=== PATIENT | female | born 1960 | race Caucasian/White ===

== ENCOUNTER → 2016-10-25 | Outpatient (REF) | payer OTHER | LOC: M LAB REF 10:13 | PROVIDERS: ATTEND Internal Medicine | DX: R07.9 Chest pain, unspecified (principal); R42 Dizziness and giddiness ==

== ENCOUNTER 2017-08-09 10:48 | Emergency (ER) | payer OTHER ==
[~2017-08-09] VITALS: Ht 170.2 cm; Wt 89.2 kg
[2017-08-09] MEDS ORDERED: CYMB1CAP4 PO (11:01)
[2017-08-09] MEDS ORDERED: BYST5TAB2 PO (11:01)
[2017-08-09] MEDS ORDERED: VALS1TAB48 PO (11:01)
[2017-08-09] MEDS ORDERED: NEUR300C PO (11:01)
[2017-08-09] MEDS ORDERED: NS 1,000 ML IV SCH (11:18)
[2017-08-09 11:24] LABS: BASO # 0.1 10^3/uL (0.0-0.2); BASO % 0.6 % (0.0-1.0); EOS # 0.1 10^3/uL (0.0-0.50); EOS % 1.5 % (0.0-3.0); IMMATURE GRANULOCYTE % 0.3 % (0-0); LYMPH # 1.3 10^3/uL (1.5-4.5); LYMPH % 14.1 % (24.0-44.0); MEAN CORPUSCULAR HEMOGLOBIN 32.3 pg (27.0-33.0); MEAN CORPUSCULAR VOLUME 95.1 fl (80.0-96.0); MONO # 0.7 10^3/uL (0.0-0.8); MONO % 7.4 % (0.0-5.0); NEUTROPHILS # 7.3 10^3/uL (1.8-7.7); NEUTROPHILS % 76.1 % (36.0-66.0); PLATELET COUNT, AUTOMATED 270 10^3/uL (150-450); RED CELL DISTRIBUTION WIDTH 13.1 % (11.5-14.5); WHITE BLOOD COUNT 9.5 10^3/uL (4.0-10.0)
[2017-08-09] MEDS ORDERED: NITROGLYCERIN 0.4 MG SUBL TABLET SL PRN (11:30)
[2017-08-09] MEDS ORDERED: ASPIRIN 81 MG CHEW TABLET PO ONE (11:30)
[2017-08-09 11:48] LABS: ALBUMIN 3.4 GM/DL (3.2-5.2); ALBUMIN/GLOBULIN RATIO 0.74 (1.00-1.93); ALKALINE PHOSPHATASE 116 U/L (45-117); ALT/SGPT 48 U/L (12-78); ANION GAP 6 MEQ/L (8-16); AST/SGOT 152 U/L (7-37); BILIRUBIN,DIRECT < 0.1 MG/DL (0.0-0.2); BILIRUBIN,TOTAL 0.3 MG/DL (0.2-1.0); BLOOD UREA NITROGEN 20 MG/DL (7-18); CALCIUM LEVEL 8.9 MG/DL (8.5-10.1); CARBON DIOXIDE LEVEL 27 MEQ/L (21-32); CHLORIDE LEVEL 101 MEQ/L (98-107); CREATININE FOR GFR 0.79 MG/DL (0.55-1.02); GLOMERULAR FILTRATION RATE > 60.0 (>51); GLUCOSE, FASTING 92 MG/DL (70-105); POTASSIUM SERUM 3.9 MEQ/L (3.5-5.1); SODIUM LEVEL 134 MEQ/L (136-145)
--- NOTE | 2017-08-09 11:48 | REP ---
Chest one-view HISTORY: Chest pain Comparison: 05/25/2015 The lungs are clear. The heart is normal in size. The pulmonary vasculature is normal in appearance. Impression: No acute disease. Signed by Vance Manrique MD 08/09/2017 11:40 A
[2017-08-09] MEDS ORDERED: NITROGLYCERIN 2% OINT 1 GM *U/D* PKT TOP ONE (12:00)
[2017-08-09] MEDS ORDERED: HEPARIN DRIP 25,000 UNITS in APPROPRIATE DILUENT 1 EA IV SCH (12:03)
[2017-08-09 12:06] VITALS: BP 157/89
[2017-08-09] MEDS ORDERED: CLOPIDOGREL 300 MG TAB (PLAVIX) PO STA (12:09)
[2017-08-09] MEDS ORDERED: HEPARIN SOD (PORCINE) 5000 UNITS/ML VIAL IV ONE (12:15)
[2017-08-09 12:36] LABS: INR 0.87
[2017-08-09 12:52] VITALS: BP 163/91
--- NOTE | 2017-08-10 07:20 | ECGEPIP ---
Stationary ECG Study 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
--- NOTE | 2017-08-10 07:23 | ECGEPIP ---
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
== END 2017-08-09 12:56 | disposition short-term general hospital (02) ==
LOC: M ED 10:48
DX: I21.19 ST elevation (STEMI) myocardial infarction involving other coronary artery of inferior wall (principal); I10 Essential (primary) hypertension; E78.5 Hyperlipidemia, unspecified; M79.7 Fibromyalgia; Z88.5 Allergy status to narcotic agent; Z88.6 Allergy status to analgesic agent; Z80.0 Family history of malignant neoplasm of digestive organs; Z79.899 Other long term (current) drug therapy

== ENCOUNTER 2017-08-29 08:29 | Outpatient (RCR) | payer OTHER | END 2017-09-28 | LOC: M CR 08:29 | DX: Z51.89 Encounter for other specified aftercare (principal); Z95.1 Presence of aortocoronary bypass graft; I25.10 Atherosclerotic heart disease of native coronary artery without angina pectoris ==

== ENCOUNTER 2017-09-30 08:41 | Outpatient (RCR) | payer OTHER | END 2017-10-29 | LOC: M CR 08:41 | DX: Z51.89 Encounter for other specified aftercare (principal); I25.10 Atherosclerotic heart disease of native coronary artery without angina pectoris; Z95.1 Presence of aortocoronary bypass graft | CPT/HCPCS: 93798 ==

== ENCOUNTER 2017-10-30 08:50 | Outpatient (RCR) | payer OTHER | END 2017-11-26 | LOC: M CR 08:50 | DX: I25.10 Atherosclerotic heart disease of native coronary artery without angina pectoris (principal); Z95.1 Presence of aortocoronary bypass graft | CPT/HCPCS: 93798 ==

== ENCOUNTER → 2017-12-23 | Outpatient (REF) | payer OTHER ==
[2017-12-23 14:17] LABS: BASO # 0.1 10^3/uL (0.0-0.2); BASO % 1.5 % (0.0-1.0); EOS # 0.1 10^3/uL (0.0-0.50); HEMATOCRIT 37.4 % (36.0-47.0); IMMATURE GRANULOCYTE % 0.4 % (0-3.0); LYMPH # 1.6 10^3/uL (1.5-4.5); LYMPH % 21.6 % (24.0-44.0); MEAN CORPUSCULAR HEMOGLOBIN 31.6 pg (27.0-33.0); MEAN CORPUSCULAR HGB CONC 32.1 g/dl (32.0-36.5); MEAN CORPUSCULAR VOLUME 98.4 fl (80.0-96.0); MONO # 0.5 10^3/uL (0.0-0.8); MONO % 7.5 % (0.0-5.0); NEUTROPHILS # 4.8 10^3/uL (1.8-7.7); PLATELET COUNT, AUTOMATED 331 10^3/uL (150-450); RED CELL DISTRIBUTION WIDTH 14.9 % (11.5-14.5); WHITE BLOOD COUNT 7.2 10^3/uL (4.0-10.0)
[2017-12-23 14:47] LABS: ALBUMIN 4.2 GM/DL (3.2-5.2); ALBUMIN/GLOBULIN RATIO 1.11 (1.00-1.93); ALKALINE PHOSPHATASE 142 U/L (45-117); ALT/SGPT 39 U/L (12-78); ANION GAP 8 MEQ/L (8-16); AST/SGOT 38 U/L (7-37); BILIRUBIN,TOTAL 0.3 MG/DL (0.2-1.0); BLOOD UREA NITROGEN 13 MG/DL (7-18); CALCIUM LEVEL 9.3 MG/DL (8.5-10.1); CARBON DIOXIDE LEVEL 28 MEQ/L (21-32); CHLORIDE LEVEL 106 MEQ/L (98-107); CREATININE FOR GFR 0.81 MG/DL (0.55-1.30); GLOMERULAR FILTRATION RATE > 60.0 (>51); GLUCOSE, FASTING 83 MG/DL (70-100); POTASSIUM SERUM 4.6 MEQ/L (3.5-5.1); SODIUM LEVEL 142 MEQ/L (136-145)
== END ==
LOC: M LABDRAW1 11:53
DX: R07.2 Precordial pain (principal)
CPT/HCPCS: 80053

== ENCOUNTER → 2018-05-13 | Outpatient (REF) | payer OTHER | LOC: M LAB REF 17:30 | DX: M79.605 Pain in left leg (principal) ==

== ENCOUNTER → 2018-07-23 | Outpatient (REF) | payer OTHER ==
[2018-07-23 17:47] LABS: RHEUMATOID FACTOR QUANT < 10.0 IU/ML (<15.0)
[2018-07-27 00:14] LABS: ANTINUCLEAR ANTIBODIES DIRECT Negative (Negative); Lyme Disease IgG/IgM Antibodie <0.91 ISR (0.00-0.90); Lyme Disease IgM Ab Quantitati <0.80 index (0.00-0.79)
[2018-07-27 00:14] LABS: CYCLIC CITRULLINATED PEPTIDE 10 units (0-19)
== END ==
LOC: M LAB REF 16:55
DX: M25.50 Pain in unspecified joint (principal); M79.7 Fibromyalgia

== ENCOUNTER → 2019-01-26 | Outpatient (CLI) | payer OTHER ==
[~2019-01-26] MED LIST: BYST5TAB2 PO; CYMB1CAP4 PO; NEUR300C PO; VALS1TAB68 PO
[2019-01-26 12:17] LABS: BASO # 0.1 10^3/uL (0.0-0.2); BASO % 0.9 % (0.0-1.0); EOS # 0.2 10^3/uL (0.0-0.50); EOS % 2.6 % (0.0-3.0); HEMATOCRIT 34.6 % (36.0-47.0); HEMOGLOBIN 11.4 g/dl (12.0-15.5); LYMPH # 2.2 10^3/uL (1.5-4.5); LYMPH % 26.2 % (24.0-44.0); MEAN CORPUSCULAR HEMOGLOBIN 31.3 pg (27.0-33.0); MEAN CORPUSCULAR HGB CONC 32.9 g/dl (32.0-36.5); MEAN CORPUSCULAR VOLUME 95.1 fl (80.0-96.0); MONO # 0.6 10^3/uL (0.0-0.8); MONO % 7.4 % (0.0-5.0); NEUTROPHILS # 5.1 10^3/uL (1.8-7.7); NEUTROPHILS % 62.4 % (36.0-66.0); PLATELET COUNT, AUTOMATED 332 10^3/uL (150-450); RED BLOOD COUNT 3.64 10^6/uL (4.00-5.40); WHITE BLOOD COUNT 8.2 10^3/uL (4.0-10.0)
[2019-01-26 12:44] LABS: ERYTHROCYTE SEDIMENTATION RATE 69 mm/hr (0-30)
[2019-01-26 12:46] LABS: ALBUMIN 3.7 GM/DL (3.2-5.2); ALT/SGPT 26 U/L (12-78); BILIRUBIN,TOTAL 0.3 MG/DL (0.2-1.0); BLOOD UREA NITROGEN 19 MG/DL (7-18); C REACTIVE PROTEIN QUANTITATIV 0.89 MG/DL (0.00-0.30); CALCIUM LEVEL 8.9 MG/DL (8.5-10.1); CARBON DIOXIDE LEVEL 27 MEQ/L (21-32); CHLORIDE LEVEL 107 MEQ/L (98-107); CREATININE FOR GFR 0.83 MG/DL (0.55-1.30); GLOMERULAR FILTRATION RATE > 60.0 (>51); GLUCOSE, FASTING 94 MG/DL (70-100); POTASSIUM SERUM 3.5 MEQ/L (3.5-5.1); SODIUM LEVEL 139 MEQ/L (136-145); TOTAL PROTEIN 7.7 GM/DL (6.4-8.2); URIC ACID 10.4 MG/DL (2.6-6.0)
--- NOTE | 2019-01-27 01:28 | REP ---
Clinical: Lower back pain. Technique: Four views of the bilateral sacroiliac joints. Findings: Bilateral sacroiliac joints are symmetric and normal for age. No significant periarticular sclerosis, effusion or spurring/osteophyte formation is appreciated. Impression: Symmetric age-appropriate bilateral sacroiliac joints. Electronically Signed by Ibrahima Brewer MD 01/27/2019 01:19 A
--- NOTE | 2019-01-27 01:54 | REP ---
Clinical: Knee pain. Technique: AP, lateral, bilateral oblique views of the right and left knee. Findings: Right knee demonstrates early advanced tricompartmental osteoarthritic degenerative changes including diffuse moderate osteophytosis, subchondral sclerosis, and joint space narrowing. Lateral views demonstrate swelling and effusion. No obvious acute fracture or dislocation. Left knee demonstrates moderate tricompartmental arthritic changes including cortical irregularity/early osteophyte formation, subchondral sclerosis primarily involving the medial and patellofemoral joint spaces with associated narrowing. Lateral view suggests suprapatellar effusion. Impression: Bilateral osteoarthritic changes (right greater than left). Electronically Signed by Ibrahima Brewer MD 01/27/2019 01:46 A
--- NOTE | 2019-01-27 02:51 | REP ---
Clinical: Bilateral knee pain. Technique: Single AP weightbearing view of the right and left knee. Findings: Right knee demonstrates early advanced osteoarthritic degenerative changes including joint space narrowing, cortical irregularities and marginal osteophyte formation. Weightbearing view demonstrates increased joint space narrowing when compared to supine AP view. Left knee demonstrates moderate osteoarthritic degenerative changes including medial joint space narrowing, early medial femoral condylar spurring and mild lateral femoral condylar cortical irregularity. Weightbearing view demonstrates increased joint space narrowing when compared to supine AP view. Impression: Arthritic degenerative changes (right greater than left). Electronically Signed by Ibrahima Brewer MD 01/27/2019 02:43 A
== END ==
LOC: M LAB 11:41
PROVIDERS: ATTEND Internal Medicine Rheumatology
DX: M17.0 Bilateral primary osteoarthritis of knee (principal)

== ENCOUNTER → 2019-01-26 | Outpatient (REF) | payer OTHER ==
[2019-01-26 18:56] LABS: SOURCE, BODY FLUID CRYSTALS RT KNEE
[2019-01-26 18:57] LABS: CRYSTALS, BODY FLUID NONE SEEN (NONE SEEN)
[2019-01-26 19:59] LABS: SOURCE, BODY FLUID RT KNEE; SYNOVIAL FLUID COLOR BROWN (YELLOW)
== END ==
LOC: M SFHCPLAZ 15:58
PROVIDERS: ATTEND Internal Medicine Rheumatology
DX: M25.469 Effusion, unspecified knee (principal)

== ENCOUNTER → 2019-03-11 | Outpatient (CLI) | payer OTHER ==
[2019-03-11 06:46] LABS: BASO # 0.1 10^3/uL (0.0-0.2); BASO % 1.7 % (0.0-1.0); EOS # 0.2 10^3/uL (0.0-0.50); EOS % 2.5 % (0.0-3.0); HEMATOCRIT 35.3 % (36.0-47.0); HEMOGLOBIN 11.7 g/dl (12.0-15.5); LYMPH # 1.7 10^3/uL (1.5-4.5); MEAN CORPUSCULAR HGB CONC 33.1 g/dl (32.0-36.5); MEAN CORPUSCULAR VOLUME 99.4 fl (80.0-96.0); MONO # 0.5 10^3/uL (0.0-0.8); MONO % 7.4 % (0.0-5.0); NEUTROPHILS # 4.4 10^3/uL (1.8-7.7); NEUTROPHILS % 63.1 % (36.0-66.0); PLATELET COUNT, AUTOMATED 274 10^3/uL (150-450); RED BLOOD COUNT 3.55 10^6/uL (4.00-5.40); WHITE BLOOD COUNT 6.9 10^3/uL (4.0-10.0)
[2019-03-11 07:19] LABS: ALBUMIN 3.8 GM/DL (3.2-5.2); BILIRUBIN,TOTAL 0.2 MG/DL (0.2-1.0); C REACTIVE PROTEIN QUANTITATIV 0.3 MG/DL (0.00-0.30); CALCIUM LEVEL 8.7 MG/DL (8.5-10.1); CREATININE FOR GFR 1.06 MG/DL (0.55-1.30); GLOMERULAR FILTRATION RATE 56.5 (>51); POTASSIUM SERUM 3.9 MEQ/L (3.5-5.1); TOTAL PROTEIN 7.6 GM/DL (6.4-8.2); URIC ACID 6.6 MG/DL (2.6-6.0)
[2019-03-13 08:08] LABS: Alkaline Phosphatase Iso-Bone 14 % (14-68); Alkaline Phosphatase Iso-Intes 0 % (0-18); Alkaline Phosphatase Iso-Liver 86 % (18-85); TOTAL ALK PHOS 100 IU/L (39-117)
== END ==
LOC: M LAB 06:07
PROVIDERS: ATTEND Internal Medicine Rheumatology
DX: M10.9 Gout, unspecified (principal); R74.8 Abnormal levels of other serum enzymes

== ENCOUNTER 2019-04-12 08:12 | Emergency (ER) | payer OTHER ==
[~2019-04-12] VITALS: Ht 170.2 cm; Wt 89.1 kg
[2019-04-12] MEDS ORDERED: BUPR1TAB52 PO (08:23)
[2019-04-12] MEDS ORDERED: ALLO100T PO (08:23)
[2019-04-12] MEDS ORDERED: CHLO125TA PO (08:23)
[2019-04-12] MEDS ORDERED: COLC1TAB13 PO (08:23)
[2019-04-12] MEDS ORDERED: ASPI81CH33 PO (08:23)
[2019-04-12] MEDS ORDERED: ATOR80TA59 PO (08:23)
[2019-04-12] MEDS ORDERED: CLOP75TA2 PO (08:23)
[2019-04-12] MEDS ORDERED: CARV12.5 PO (08:23)
[2019-04-12] MEDS ORDERED: GABA-845 PO (08:23)
[2019-04-12] MEDS ORDERED: DULO1CAP6 PO (08:23)
[2019-04-12] MEDS ORDERED: PERCOCET 5MG/325MG TAB PO ONE (09:45)
--- NOTE | 2019-04-12 09:46 | REP ---
RIGHT ANKLE, FOUR VIEWS: Four views of the right ankle are performed. There is an oblique fracture of the distal fibula which is minimally displaced posteriorly. There is slight widening of the medial aspect of the ankle mortise. There is soft tissue swelling. I see no other fracture or dislocation. There is inferior calcaneal spurring. Electronically Signed by Connor Sanchez MD 04/12/2019 01:11 P
--- NOTE | 2019-04-12 09:47 | REP ---
PELVIS AND RIGHT HIP: AP view of the pelvis and AP and frog leg views of the right hip are performed. There is no acute fracture or dislocation. No intrinsic osseous pathology is seen. IMPRESSION: No fracture or dislocation. Electronically Signed by Connor Sanchez MD 04/12/2019 01:11 P
--- NOTE | 2019-04-12 09:48 | REP ---
RIGHT KNEE, FIVE VIEWS: Five views of the right knee are performed. There is no acute fracture or dislocation. There is moderate diffuse joint space narrowing with subchondral sclerosis and spurring. There is a small joint effusion. IMPRESSION: Degenerative changes with small joint effusion. No evidence of acute fracture or dislocation. Electronically Signed by Connor Sanchez MD 04/12/2019 01:11 P
[2019-04-12] MEDS ORDERED: PERC5TAB12 PO (10:24)
[2019-04-12 10:32] VITALS: BP 169/83
== END 2019-04-12 10:33 | disposition home or self-care (01) ==
LOC: M ED 08:12
DX: S82.831A Other fracture of upper and lower end of right fibula, initial encounter for closed fracture (principal); S80.01XA Contusion of right knee, initial encounter; S70.01XA Contusion of right hip, initial encounter; W01.0XXA Fall on same level from slipping, tripping and stumbling without subsequent striking against object, initial encounter; Y92.018 Other place in single-family (private) house as the place of occurrence of the external cause; M17.11 Unilateral primary osteoarthritis, right knee; I10 Essential (primary) hypertension; E78.00 Pure hypercholesterolemia, unspecified; K58.9 Irritable bowel syndrome, unspecified; M79.7 Fibromyalgia; M10.9 Gout, unspecified; Z79.899 Other long term (current) drug therapy; Z79.82 Long term (current) use of aspirin; Z79.02 Long term (current) use of antithrombotics/antiplatelets; Z88.5 Allergy status to narcotic agent

== ENCOUNTER 2019-04-15 11:06 | Day surgery (SDC) | payer OTHER ==
[~2019-04-15] VITALS: Ht 170.2 cm; Wt 88.9 kg
[~2019-04-15 11:06] MED LIST changes: +ALLO100T PO; +ASPI81CH33 PO; +ATOR80TA59 PO; +BUPR1TAB52 PO; +CARV12.5 PO; +CHLO125TA PO; +CLOP75TA2 PO; +COLC1TAB13 PO; +DULO1CAP6 PO; +GABA-845 PO; +LR 1,000 ML IV ONE; +PERC5TAB12 PO
[2019-04-15 11:44] LABS: POTASSIUM SERUM 3.6 MEQ/L (3.5-5.1)
[2019-04-15] MEDS ORDERED: fentaNYL 100 MCG/2 ML INJECTION (J3010) As Ordered ONE ×2 (11:44→13:51)
[2019-04-15] MEDS ORDERED: MIDAZOLAM INJ 2 MG/2 ML VIAL (J2250) As Ordered ONE (11:44)
[2019-04-15] MEDS ORDERED: PROPOFOL 500 MG/50 ML VIAL As Ordered ONE (11:44)
[2019-04-15] MEDS ORDERED: dexameTHASONE 4 MG/ML 1ML VIAL (J1100) As Ordered ONE (11:45)
[2019-04-15] MEDS ORDERED: ONDANSETRON 4MG/2ML VIAL (J2405) As Ordered ONE (11:45)
[2019-04-15] MEDS ORDERED: LIDOCAINE 2% INJ 100 MG/5 ML SDV (FOR ANES.) As Ordered ONE (11:45)
[2019-04-15] MEDS ORDERED: PLAV1TAB2 PO (11:48)
[2019-04-15] MEDS ORDERED: ROCURONIUM BROMIDE 50 MG/5 ML VIAL As Ordered ONE (11:51)
[2019-04-15] MEDS ORDERED: ceFAZolin 1GM INJ (J0690 PER 500MG) As Ordered ONE (12:12)
--- NOTE | 2019-04-15 12:45 | IPN ---
DATE: 04/15/2019 Patient seen and examined. She has a recheck on her potassium, which came back within normal range and Dr. Stewart was okay with that. She had an ankle fracture several days ago and has off her Plavix for approximately 3 days now. She also takes a baby aspirin. And the patient has apparently been cleared from medical standpoint for surgery. She does have a widened mortise to some degree on the x-ray and a distal fibula fracture. I have talked to her about the nature of the procedure and consented her and explained that we would likely do an open reduction internal fixation with a plate and screws along the lateral aspect of the right ankle with a small chance of opening medially. She understands the nature of this, the risks of bleeding, infection, damage to nerves, vessels, malunion, nonunion, loss of reduction, blood clots, medical problems among others. She understands that she will be in a splint postoperatively eventually converted to a cast. She wishes to proceed. Site and side was initialed.
[2019-04-15] MEDS ORDERED: HYDROmorphone HCL 2 MG/ML 1ML VIAL (J1170) As Ordered ONE (12:47)
[2019-04-15] MEDS ORDERED: SUGAMMADEX SODIUM 500 MG/5 ML VIAL (BRIDION) As Ordered ONE (13:13)
[2019-04-15] MEDS ORDERED: ACETAMINOPHEN 1000MG 100ML IV BTL (OFIRMEV) (J0131 PER 10MG) As Ordered ONE (13:13)
[2019-04-15] MEDS ORDERED: KETOROLAC 60 MG/2 ML VIAL (J1885) As Ordered ONE (13:14)
[2019-04-15] MEDS ORDERED: PERCOCET 5MG/325MG TAB As Ordered ONE (13:51)
[2019-04-15] MEDS ORDERED: LR 1,000 ML IV SCH ×2 (14:00)
[2019-04-15] MEDS: fentaNYL 100 MCG/2 ML INJECTION (J3010) IV PRN ×4 (14:00→14:25)
[2019-04-15] MEDS ORDERED: PERCOCET 5MG/325MG TAB PO PRN ×3 (14:00)
[2019-04-15] MEDS ORDERED: METOCLOPRAMIDE INJ 10MG/2ML VIAL (J2765) IV PRN (14:00)
[2019-04-15] MEDS ORDERED: ONDANSETRON 4MG/2ML VIAL (J2405) IV PRN (14:00)
[2019-04-15] MEDS ORDERED: GABAPENTIN 400 MG CAP PO ONE (14:30)
--- NOTE | 2019-04-15 14:56 | REP ---
C-ARM VIEWS, RIGHT ANKLE: Five C-arm views right ankle are performed during placement of a sideplate and multiple metallic screws in the distal fibula. The osseous structures are well aligned and the ankle mortise is anatomic. 13 seconds of fluoroscopy time utilized. Electronically Signed by Connor Sanchez MD 04/18/2019 07:16 P
[2019-04-15 14:58] LABS: BLOOD UREA NITROGEN 9 MG/DL (7-18); CALCIUM LEVEL 8.4 MG/DL (8.5-10.1); CARBON DIOXIDE LEVEL 30 MEQ/L (21-32); CHLORIDE LEVEL 105 MEQ/L (98-107); CREATININE FOR GFR 0.73 MG/DL (0.55-1.30); GLOMERULAR FILTRATION RATE > 60.0 (>51); GLUCOSE, FASTING 114 MG/DL (70-100); SODIUM LEVEL 140 MEQ/L (136-145)
[2019-04-15 16:30] VITALS: BP 113/65
--- NOTE | 2019-04-15 19:16 | ECGEPIP ---
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 Could not rule out prior IWMI. Lateral ST/T-wave abnormalities - less problems than 08/09/17. Electronically Signed on 04-15-2019 19:16:02 EDT by Froilan Galindo
--- NOTE | 2019-04-16 22:22 | RO ---
DATE OF PROCEDURE: 04/15/2019 PREOPERATIVE DIAGNOSIS: Right distal fibula fracture, displaced with somewhat widened medial mortise. POSTOPERATIVE DIAGNOSIS: Right distal fibula fracture, displaced with somewhat widened medial mortise. PROCEDURE: Open reduction internal fixation (ORIF) right ankle, distal fibula. SURGEON: Star Hoffman MD GOLD FRAME ASSEMBLER: ANESTHESIA: General. ESTIMATED BLOOD LOSS: Less than 50 mL. COMPLICATIONS: None. INDICATIONS: A 58-year-old woman who several days ago injured her right ankle when she fell. She sustained a distal fibula fracture that just about at the level of the ankle joint and some widening of her medial mortise with some lateral displacement of the fibula. It was recommended that she proceed with surgical treatment, and she wished to go ahead with this. She understood the nature and the risks associated with this, and I consented her today. She understood there might be a need for hardware removal, there could be a malunion or nonunion or blood clots, etc., although she is on Plavix and aspirin normally. DESCRIPTION OF PROCEDURE: The patient was taken to the operating room, placed in supine position after general anesthesia was induced. The right lower extremity was prepped and draped in the usual sterile fashion. Time-out was performed, and I inflated the tourniquet. I then created a longitudinal incision over the lateral aspect of the ankle and carefully dissected bluntly down through the subcutaneous tissue until the fibula fracture was identified. It was quite distal right at the level of the ankle, at the tibiotalar articulation. I irrigated out the fracture and then was able to reduce it with the pointed towel clip reduction clamp. There was really no significant comminution. I then placed an interfragmentary (interfrag) screw anterior to posterior transverse to the fracture site, and this was done by over drilling the anterior cortex, appropriate length screw was chosen, and this provided excellent stability at the fracture site for an interfrag screw. I then contoured a 7- hole one-third tubular plate along distal aspect of the fibula, just bending the very tip of it down and then started with the most distal screw, which was drilled, measured and appropriate length screw was placed cancellus. I also drilled one proximal to that. The third hole would have been at the fracture site, so I left that empty, and I also filled the proximal three holes with cortical screws measuring after drilling and quite good purchase was noted. The fracture was quite stable afterwards. I then attempted to move the syndesmosis and shuck the fibula anteriorly and posteriorly and was not able to do so; it was quite stable. I tried to pull the fibula away from the joint and was unable to do so. I then took several images, including a stress view with the ankle dorsiflexed and externally rotated, and there was no widening of the medial mortise. The hardware appeared to be in excellent position. The ankle was well reduced. I then irrigated, repaired some of the deep tissues with #2-0 Vicryl, and the subcu with #2-0 Vicryl and the skin with jorge. A sterile dressing was applied followed by a posterior splint, which will hopefully allow for any swelling that may occur, particularly since she is on blood thinners. We will plan on keeping her nonweightbearing, probably for a neighborhood of 4 weeks or so and then start some partial weightbearing and maybe full weightbearing by 6 weeks if she is healing. ELIANA
== END 2019-04-15 16:45 | disposition home or self-care (01) ==
LOC: M SDC 11:06
PROVIDERS: ATTEND Orthopaedic Surgery
DX: S82.61XA Displaced fracture of lateral malleolus of right fibula, initial encounter for closed fracture (principal); S93.04XA Dislocation of right ankle joint, initial encounter; W01.0XXA Fall on same level from slipping, tripping and stumbling without subsequent striking against object, initial encounter; Y92.008 Other place in unspecified non-institutional (private) residence as the place of occurrence of the external cause; Y99.9 Unspecified external cause status; Y93.89 Activity, other specified
CPT/HCPCS: 27792; 36415; 76000; 80048; 93005; C1713; J0131; J0690; J1100; J1170; J1885; J2250; J2405; J2765; J3010

== ENCOUNTER → 2019-04-30 | Outpatient (REF) | payer OTHER ==
[~2019-04-30] MED LIST changes: -LR 1,000 ML IV ONE; +PLAV1TAB2 PO
[2019-04-30 16:08] LABS: BASO # 0.1 10^3/uL (0.0-0.2); BASO % 0.6 % (0.0-1.0); EOS # 0.2 10^3/uL (0.0-0.50); EOS % 1.9 % (0.0-3.0); HEMATOCRIT 32.7 % (36.0-47.0); HEMOGLOBIN 10.7 g/dl (12.0-15.5); LYMPH # 1.7 10^3/uL (1.5-4.5); LYMPH % 19.3 % (24.0-44.0); MEAN CORPUSCULAR HEMOGLOBIN 32.6 pg (27.0-33.0); MEAN CORPUSCULAR HGB CONC 32.7 g/dl (32.0-36.5); MEAN CORPUSCULAR VOLUME 99.7 fl (80.0-96.0); MONO # 0.5 10^3/uL (0.0-0.8); MONO % 5.8 % (0.0-5.0); NEUTROPHILS # 6.4 10^3/uL (1.8-7.7); PLATELET COUNT, AUTOMATED 358 10^3/uL (150-450); RED BLOOD COUNT 3.28 10^6/uL (4.00-5.40); WHITE BLOOD COUNT 8.9 10^3/uL (4.0-10.0)
[2019-04-30 16:19] LABS: ALBUMIN 3.3 GM/DL (3.2-5.2); ALT/SGPT 28 U/L (12-78); BILIRUBIN,TOTAL 0.4 MG/DL (0.2-1.0); BLOOD UREA NITROGEN 13 MG/DL (7-18); C REACTIVE PROTEIN QUANTITATIV 3.02 MG/DL (0.00-0.30); CALCIUM LEVEL 9.2 MG/DL (8.5-10.1); CARBON DIOXIDE LEVEL 28 MEQ/L (21-32); CHLORIDE LEVEL 103 MEQ/L (98-107); CREATININE FOR GFR 0.83 MG/DL (0.55-1.30); GLOMERULAR FILTRATION RATE > 60.0 (>51); GLUCOSE, FASTING 106 MG/DL (70-100); POTASSIUM SERUM 3.6 MEQ/L (3.5-5.1); SODIUM LEVEL 140 MEQ/L (136-145); TOTAL PROTEIN 6.9 GM/DL (6.4-8.2)
[2019-04-30 16:28] LABS: ERYTHROCYTE SEDIMENTATION RATE 68 mm/hr (0-30)
== END ==
LOC: M LABDRAW1 14:22
PROVIDERS: ATTEND Internal Medicine Rheumatology
DX: M10.9 Gout, unspecified (principal)

== ENCOUNTER → 2019-10-22 | Outpatient (REF) | payer OTHER | LOC: M LAB REF 17:42 | PROVIDERS: ATTEND Internal Medicine | DX: M10.9 Gout, unspecified (principal) ==

== ENCOUNTER → 2019-10-22 | Outpatient (CLI) | payer OTHER ==
--- NOTE | 2019-10-23 06:46 | REP ---
MRI lumbar spine without contrast: History: Degenerative disc disease in the lumbar region. Rule out stenosis. Technique: Sagittal and axial T1 and T2-weighted scans are acquired in the usual fashion with and without fat saturation. Sequences include spin echo, turbo spin-echo, and STIR imaging sequences. Findings: There is an abdominal aortic aneurysm noted which appears fairly large. It is incompletely included in the imaging field of view, however, it appears to contain an aortobiiliac stent. The aneurysm measures 4.1 cm in greatest anteroposterior dimension. Lumbar vertebral body heights are preserved. There is no evidence of spondylolisthesis. There is some straightening. Alignment is otherwise normal. The tip of the conus medullaris is normal in position and appearance. Axial and sagittal images taken at the L1-2 level demonstrate a broad-based central focal disc protrusion, moderate in size, indenting the ventral margin of the thecal sac. There is mild thecal sac compression. No foraminal narrowing is appreciated. At L2-L3, there is degenerative disc narrowing and posterior diffuse disc bulging. Canal size is borderline. Midline AP dimension of the thecal sac is 10 mm. There is some dorsal epidural fat contributing to the size of the canal. At L3-4, there is a broad-based focal disc protrusion which extends caudally over the posterior margin of the L4 vertebral body. This in combination with ligamentum flavum and facet hypertrophy as well as dorsal epidural fat produces mild to moderate central canal stenosis. The mid line AP dimension of the thecal sac at L3-4 is 7 mm. There is minimal neural foraminal narrowing from facet hypertrophy and disc bulging. At L4-L5, there is moderate to severe central canal stenosis due to diffuse disc bulging, ligamentum flavum hypertrophy, facet hypertrophy, dorsally positioned epidural fat, and developmentally somewhat short pedicles. There is foraminal disc bulging which along with facet hypertrophy produces bilateral neural foraminal narrowing at L4-5. The mid line AP dimension of the thecal sac at L4-5 is 4.7 mm. At L5-S1, there is a moderate sized right posterior disc protrusion which extends caudally producing right S1 nerve root compression and some mild thecal sac compression. There is moderate bulging of the remainder of the disc margin. No neural foraminal narrowing is seen. Facet hypertrophy is noted. Impression: Fairly advanced degenerative spondylosis changes. The dominant abnormality appears to be at L4-5 where there is moderate to marked central canal stenosis. There is mild to moderate canal stenosis at L3-4 where there is a caudally extended disc protrusion. There is a right posterior disc protrusion at L5-S1. Electronically Signed by Rajendra Flower MD 10/23/2019 08:33 A
== END ==
LOC: M RAD 15:55
PROVIDERS: ATTEND Physician Assistant Surgical
DX: M51.37 Other intervertebral disc degeneration, lumbosacral region (principal)

== ENCOUNTER → 2019-11-11 | Outpatient (REF) | payer OTHER ==
[2019-11-11 12:38] LABS: PLATELET COUNT, AUTOMATED 321 10^3/uL (150-450)
[2019-11-11 12:56] LABS: INR 1.09; PROTHROMBIN TIME 13.8 SECONDS (11.8-14.0)
[2019-11-11 12:57] LABS: PARTIAL THROMBOPLASTIN TIME 28.1 SECONDS (25.0-38.4)
== END ==
LOC: M LABDRAW1 09:19
PROVIDERS: ATTEND Physician Assistant
DX: Z01.812 Encounter for preprocedural laboratory examination (principal); D69.1 Qualitative platelet defects; M47.817 Spondylosis without myelopathy or radiculopathy, lumbosacral region

== ENCOUNTER → 2019-11-24 | Outpatient (REF) | payer OTHER ==
[2019-11-24 17:35] LABS: PERCENT SATURATION 16.6 % (13.2-45.0)
== END ==
LOC: M LAB REF 16:57
PROVIDERS: ATTEND Internal Medicine
DX: D64.9 Anemia, unspecified (principal)

== ENCOUNTER → 2021-05-04 | Outpatient (REF) | payer OTHER ==
[~2021-05-04] MED LIST changes: +COLC0.6T47 PO; -COLC1TAB13 PO; +GABA-283 PO; -GABA-845 PO
[2021-05-04 17:39] LABS: PERCENT SATURATION 21.7 % (13.2-45.0)
== END ==
LOC: M LAB REF 16:48
PROVIDERS: ATTEND Internal Medicine
DX: D64.9 Anemia, unspecified (principal)

== ENCOUNTER → 2022-02-28 | Outpatient (CLI) | payer MEDICARE | LOC: M WUC 10:51 | PROVIDERS: ATTEND Internal Medicine | DX: M25.561 Pain in right knee (principal); M25.761 Osteophyte, right knee ==

== ENCOUNTER → 2022-05-03 | Outpatient (CLI) | payer MEDICARE | LOC: M WUC 12:10 | PROVIDERS: ATTEND Physician Assistant | DX: S20.211A Contusion of right front wall of thorax, initial encounter (principal); X58.XXXA Exposure to other specified factors, initial encounter; Y92.9 Unspecified place or not applicable; Y93.9 Activity, unspecified; Y99.9 Unspecified external cause status; J84.9 Interstitial pulmonary disease, unspecified; I51.7 Cardiomegaly; I70.0 Atherosclerosis of aorta; Z95.828 Presence of other vascular implants and grafts ==

== ENCOUNTER → 2022-08-05 | Outpatient (CLI) | payer MEDICARE ==
[~2022-08-05] MED LIST changes: +CLOP75TA99 PO; -PLAV1TAB2 PO
== END ==
LOC: M SLEEP HO 12:36
PROVIDERS: ATTEND Physician Assistant
DX: G47.9 Sleep disorder, unspecified (principal)

== ENCOUNTER → 2022-10-24 | Outpatient (CLI) | payer MEDICARE | LOC: M WUC 13:01 | PROVIDERS: ATTEND Student in an Organized Health Care Education/Training Program | DX: R06.02 Shortness of breath (principal); I50.9 Heart failure, unspecified ==

== ENCOUNTER → 2022-11-04 | Outpatient (CLI) | payer MEDICARE ==
[~2022-11-04] MED LIST changes: +ALBU8.5H INH; +ASPI-161 PO; +GABA600T4 PO; +ONDA4TAB6 PO; +POTA-151 PO; +POTA10LI10 PO; +TORS20TA2 PO
== END ==
LOC: M WUC 15:03
PROVIDERS: ATTEND Internal Medicine
DX: M79.7 Fibromyalgia (principal); I50.32 Chronic diastolic (congestive) heart failure; I25.10 Atherosclerotic heart disease of native coronary artery without angina pectoris; I27.20 Pulmonary hypertension, unspecified; I70.0 Atherosclerosis of aorta; Z95.828 Presence of other vascular implants and grafts

== ENCOUNTER 2022-11-06 19:24 | Inpatient (IN) | payer MEDICARE ==
[~2022-11-06] VITALS: Ht 170.2 cm; Wt 82.3 kg
[~2022-11-06 19:24] MED LIST changes: -ALBU8.5H INH; -ASPI-161 PO; -GABA600T4 PO; -ONDA4TAB6 PO; -POTA-151 PO; -POTA10LI10 PO; -TORS20TA2 PO
[2022-11-06 20:50] LABS: BASO # 0.1 10^3/uL (0.0-0.2); BASO % 0.4 % (0.0-1.0); EOS # 0.1 10^3/uL (0.0-0.5); EOS % 0.6 % (0.0-3.0); HEMOGLOBIN 13.2 g/dl (12.0-15.5); LYMPH % 14.3 % (24.0-44.0); MEAN CORPUSCULAR HEMOGLOBIN 31.5 pg (27.0-33.0); MEAN CORPUSCULAR VOLUME 95.5 fl (80.0-96.0); MONO # 1.1 10^3/uL (0.0-0.8); MONO % 8.4 % (2.0-8.0); NEUTROPHILS # 10.3 10^3/uL (1.5-8.5); NEUTROPHILS % 75.6 % (36.0-66.0); PLATELET COUNT, AUTOMATED 307 10^3/uL (150-450); RED BLOOD COUNT 4.19 10^6/uL (4.00-5.40); WHITE BLOOD COUNT 13.6 10^3/uL (4.0-10.0)
[2022-11-06] MEDS ORDERED: VALSARTAN 80 MG TAB (DIOVAN) PO SCH (21:00)
[2022-11-06 21:14] LABS: CK-MB VALUE MASS < 1.0 NG/ML (<3.6); LIPASE 43 U/L (12-53)
[2022-11-06 21:32] LABS: CPK CREATINE PHOSPHOKINASE 91 U/L (34-145); MB/CK RELATIVE INDEX 1.09 (< OR =4)
[2022-11-06] MEDS ORDERED: KCL 10MEQ/100ML SWI (KRUN) 10 MEQ in IV 1 EA IV ONE ×2 (21:35→22:40)
[2022-11-06 21:57] LABS: ALBUMIN 3.6 G/DL (3.2-5.2); ALKALINE PHOSPHATASE 134 U/L (46-116); ALT/SGPT 20 U/L (7.0-40); AST/SGOT 35 U/L (<34); BILIRUBIN,DIRECT 0.2 MG/DL (<0.4); BILIRUBIN,TOTAL 0.4 MG/DL (0.3-1.2); BLOOD UREA NITROGEN 22 MG/DL (9-23); CARBON DIOXIDE LEVEL 35 MMOL/L (20-31); CHLORIDE LEVEL 92 MMOL/L (98-107); GLUCOSE, FASTING 97 MG/DL (74-106); POTASSIUM SERUM 2.6 MMOL/L (3.5-5.1); SODIUM LEVEL 137 MMOL/L (136-145); TOTAL PROTEIN 7.4 G/DL (5.7-8.2)
[2022-11-06] MEDS ORDERED: NS 1,000 ML IV SCH (22:00)
[2022-11-06 22:15] LABS: CK-MB VALUE MASS < 1.0 NG/ML (<3.6)
[2022-11-06 22:17] LABS: CPK CREATINE PHOSPHOKINASE 82 U/L (34-145); MB/CK RELATIVE INDEX 1.21 (< OR =4)
[2022-11-06 22:46] LABS: MAGNESIUM LEVEL 1.4 MG/DL (1.8-2.4)
[2022-11-06 23:08] LABS: RSV AMPLIFICATION NEGATIVE (NEGATIVE)
[2022-11-06] MEDS ORDERED: MAG SULF 1GM/100ML (MAG RUN) 1 GM in IV 1 EA IV ONE (23:15)
[2022-11-06] MEDS ORDERED: ASPI-161 PO (23:55)
[2022-11-06] MEDS ORDERED: HOME MED LIST COMPLETE! XX SCH (23:55)
[2022-11-06] MEDS ORDERED: TORS20TA2 PO (23:55)
[2022-11-06] MEDS ORDERED: GABA600T4 PO (23:55)
[2022-11-06] MEDS ORDERED: POTA-151 PO (23:55)
[2022-11-06] MEDS ORDERED: ALBU8.5H INH (23:55)
[2022-11-07] MEDS ORDERED: NS 1,000 ML IV SCH ×2 (00:55→07:10)
[2022-11-07] MEDS ORDERED: ALBUTEROL 90 MCG/ACT 8GM HFA INHALER INH PRN (00:55)
[2022-11-07 01:15] VITALS: BP 100/63
[2022-11-07 01:58] VITALS: BP 100/63
[2022-11-07] MEDS ORDERED: POTASSIUM CHLORIDE 10MEQ SR TABLET PO ONE (02:00)
[2022-11-07] MEDS ORDERED: MAG SULF 1GM/100ML (MAG RUN) 1 GM in IV 1 EA IV ONE (02:00)
[2022-11-07] MEDS ORDERED: GABAPENTIN 300 MG CAP PO ONE (02:00)
[2022-11-07 03:48] LABS: APPEARANCE, URINE MANUAL CLEAR (CLEAR); COLOR, URINE MANUAL YELLOW (YELLOW)
[2022-11-07 03:50] LABS: BILIRUBIN, URINE MANUAL NEGATIVE (NEGATIVE); BLOOD URINE MANUAL POSITIVE (NEGATIVE); GLUCOSE, URINE (UA) MANUAL NEGATIVE (NEGATIVE); KETONE, URINE MANUAL NEGATIVE (NEGATIVE); LEUKOCYTE ESTERASE, URINE MAN NEGATIVE (NEGATIVE); NITRITE, URINE MANUAL NEGATIVE (NEGATIVE); PROTEIN, URINE MANUAL NEGATIVE (NEGATIVE); UROBILINOGEN, URINE MANUAL NORMAL (NORMAL)
[2022-11-07] MEDS ORDERED: ASPIRIN 81MG CHEW TABLET PO ONE (04:00)
[2022-11-07 04:14] LABS: BACTERIA, URINE LARGE AMOUNT; SQUAMOUS EPITHELIAL CELL URINE LARGE AMOUNT /hpf (SMALL AMT)
[2022-11-07 04:16] LABS: MUCUS, URINE SMALL AMOUNT (NEGATIVE)
[2022-11-07 04:30] LABS: CREATININE,RANDOM URINE 287.7 MG/DL
[2022-11-07 06:00] VITALS: BP 111/65
[2022-11-07] MEDS: HEPARIN SOD (PORCINE) 5000UNITS/ML 1ML VIAL/SYRINGE SC SCH ×2 (06:33→13:35)
[2022-11-07 06:34] LABS: CREATININE FOR GFR 1.29 MG/DL (0.55-1.30); GLOMERULAR FILTRATION RATE 44.4 (>45); POTASSIUM SERUM 2.7 MMOL/L (3.5-5.1)
[2022-11-07] MEDS ORDERED: POTASSIUM CHLORIDE 10% LIQ 20MEQ/15ML UDC PO ONE (08:00)
[2022-11-07] MEDS ORDERED: CARVedilol 12.5 MG TAB PO SCH (09:00)
[2022-11-07] MEDS ORDERED: DULoxetine 30MG CAPSULE (CYMBALTA) PO SCH (09:00)
[2022-11-07] MEDS ORDERED: GABAPENTIN 300 MG CAP PO SCH (09:00)
[2022-11-07 09:04] VITALS: BP 93/59
[2022-11-07 10:00] VITALS: BP 112/63
[2022-11-07 13:53] LABS: BLOOD UREA NITROGEN 19 MG/DL (9-23); CALCIUM LEVEL 7.8 MG/DL (8.3-10.6); CARBON DIOXIDE LEVEL 31 MMOL/L (20-31); CHLORIDE LEVEL 99 MMOL/L (98-107); CREATININE FOR GFR 0.92 MG/DL (0.55-1.30); GLOMERULAR FILTRATION RATE > 60.0 (>45); GLUCOSE, FASTING 132 MG/DL (74-106); POTASSIUM SERUM 3.5 MMOL/L (3.5-5.1); SODIUM LEVEL 137 MMOL/L (136-145)
[2022-11-07 14:00] VITALS: BP 128/66
[2022-11-07] MEDS ORDERED: POTA10LI10 PO ×2 (14:14→14:36)
[2022-11-07] MEDS ORDERED: ONDA4TAB6 PO ×2 (14:14→14:36)
[2022-11-07] MEDS ORDERED: LACTOBACILLUS ACIDOPHILUS CAP (BACID) PO SCH (18:00)
[2022-11-07] MEDS ORDERED: ASPIRIN 81MG ENTERIC TABLET PO SCH (21:00)
[2022-11-07] MEDS ORDERED: ATORVASTATIN 20 MG TAB PO SCH (21:00)
== END 2022-11-07 16:30 | disposition home or self-care (01) | DRG 684 ==
LOC: M ED 19:24 → M ED INP 23:35 → M MSPAV 11-07 01:11
PROVIDERS: ADMIT Internal Medicine; ATTEND Internal Medicine
DX: N17.9 Acute kidney failure, unspecified (principal); I11.0 Hypertensive heart disease with heart failure; I50.9 Heart failure, unspecified; L40.9 Psoriasis, unspecified; E78.5 Hyperlipidemia, unspecified; R19.7 Diarrhea, unspecified; F12.90 Cannabis use, unspecified, uncomplicated; E83.42 Hypomagnesemia; E87.6 Hypokalemia; R11.2 Nausea with vomiting, unspecified; Z95.5 Presence of coronary angioplasty implant and graft; J10.1 Influenza due to other identified influenza virus with other respiratory manifestations; M79.7 Fibromyalgia; F32.A Depression, unspecified; F41.9 Anxiety disorder, unspecified; G43.909 Migraine, unspecified, not intractable, without status migrainosus; Z95.2 Presence of prosthetic heart valve; E86.0 Dehydration; I25.10 Atherosclerotic heart disease of native coronary artery without angina pectoris; Z79.82 Long term (current) use of aspirin; Z79.899 Other long term (current) drug therapy; Z88.5 Allergy status to narcotic agent; M10.9 Gout, unspecified; Z87.891 Personal history of nicotine dependence

== ENCOUNTER → 2022-11-11 | Outpatient (REF) | payer MEDICARE ==
[~2022-11-11] MED LIST changes: +ALBU8.5H INH; +ASPI-161 PO; +GABA600T4 PO; +ONDA4TAB6 PO; +POTA-151 PO; +POTA10LI10 PO; +TORS20TA2 PO
[2022-11-11 13:29] LABS: IMMUNOGLOBULIN A 334.1 MG/DL (40-350)
== END ==
LOC: M LAB REF 11:08
PROVIDERS: ATTEND Internal Medicine
DX: R19.7 Diarrhea, unspecified (principal)

== ENCOUNTER → 2023-02-07 | Outpatient (CLI) | payer MEDICARE, OTHER ==
[2023-02-07 17:45] LABS: ALBUMIN 3.5 G/DL (3.2-5.2); BLOOD UREA NITROGEN 15 MG/DL (9-23); CALCIUM LEVEL 8.5 MG/DL (8.3-10.6); CARBON DIOXIDE LEVEL 30 MMOL/L (20-31); CHLORIDE LEVEL 104 MMOL/L (98-107); CREATININE FOR GFR 0.85 MG/DL (0.55-1.30); GLOMERULAR FILTRATION RATE > 60.0 (>45); GLUCOSE, FASTING 107 MG/DL (74-106); PHOSPHORUS LEVEL 3.4 MG/DL (2.4-5.1); POTASSIUM SERUM 4.2 MMOL/L (3.5-5.1); SODIUM LEVEL 142 MMOL/L (136-145)
== END ==
LOC: M WUC 14:21
PROVIDERS: ATTEND Internal Medicine Cardiovascular Disease
DX: I50.42 Chronic combined systolic (congestive) and diastolic (congestive) heart failure (principal); I11.0 Hypertensive heart disease with heart failure

== ENCOUNTER → 2023-02-16 | Outpatient (CLI) | payer MEDICARE ==
[~2023-02-16] MED LIST changes: +APRE1TAB PO; +CEFP200T PO; +DOXY100C3 PO; +ENTR1TAB7 PO; +FLUO1SOL TOP; +MAGN400T2 PO; +RISATAB3 PO; +SPIR-10 PO; +TORS10TA3 PO; +TRIA1CR80 TOP
== END ==
LOC: M SLEEP 20:00
PROVIDERS: ATTEND Nurse Practitioner Family
DX: G47.33 Obstructive sleep apnea (adult) (pediatric) (principal)

== ENCOUNTER 2023-02-17 19:38 | Inpatient (IN) | payer MEDICARE ==
[~2023-02-17] VITALS: Ht 170.2 cm; Wt 85.0 kg
[~2023-02-17 19:38] MED LIST changes: -APRE1TAB PO; -CEFP200T PO; -DOXY100C3 PO; -ENTR1TAB7 PO; -FLUO1SOL TOP; -MAGN400T2 PO; -RISATAB3 PO; -SPIR-10 PO; -TORS10TA3 PO; -TRIA1CR80 TOP
[2023-02-17] MEDS ORDERED: NS 1,000 ML IV ONE (20:05)
[2023-02-17 20:22] LABS: BASO % 0.3 % (0.0-1.0); EOS # 0.1 10^3/uL (0.0-0.5); EOS % 0.9 % (0.0-3.0); HEMOGLOBIN 10.8 g/dl (12.0-15.5); LYMPH # 0.6 10^3/uL (1.5-5.0); LYMPH % 4.7 % (24.0-44.0); MEAN CORPUSCULAR HEMOGLOBIN 31.5 pg (27.0-33.0); MEAN CORPUSCULAR HGB CONC 34.8 g/dl (32.0-36.5); MEAN CORPUSCULAR VOLUME 90.4 fl (80.0-96.0); MONO % 7.3 % (2.0-8.0); NEUTROPHILS # 11.7 10^3/uL (1.5-8.5); NEUTROPHILS % 85.6 % (36.0-66.0); PLATELET COUNT, AUTOMATED 342 10^3/uL (150-450); RED BLOOD COUNT 3.43 10^6/uL (4.00-5.40); WHITE BLOOD COUNT 13.7 10^3/uL (4.0-10.0)
[2023-02-17 20:52] LABS: ALBUMIN 2.5 G/DL (3.2-5.2); BILIRUBIN,DIRECT 0.2 MG/DL (<0.4); BILIRUBIN,TOTAL 0.4 MG/DL (0.3-1.2); MAGNESIUM LEVEL 1.7 MG/DL (1.8-2.4); TOTAL PROTEIN 6.8 G/DL (5.7-8.2)
[2023-02-17 20:54] LABS: RSV AMPLIFICATION NEGATIVE (NEGATIVE)
[2023-02-17] MEDS ORDERED: KCL 10MEQ/100ML SWI (KRUN) 10 MEQ in IV 1 EA IV ONE ×2 (21:15→22:55)
[2023-02-17] MEDS ORDERED: MAG SULF 1GM/100ML (MAG RUN) 1 GM in IV 1 EA IV ONE (21:15)
[2023-02-17 21:16] LABS: CALCIUM LEVEL 8.1 MG/DL (8.3-10.6); CREATININE FOR GFR 2.89 MG/DL (0.55-1.30); GLOMERULAR FILTRATION RATE 17.5 (>45); POTASSIUM SERUM 2.7 MMOL/L (3.5-5.1)
[2023-02-17] MEDS ORDERED: NS 1,000 ML IV SCH (21:20)
[2023-02-17] MEDS ORDERED: PIPERACILLIN/TAZOBACTAM SOD 3.375 GM in D5W MINI-BAG PLUS 50 ML IV ONE (23:15)
[2023-02-17] MEDS ORDERED: ACETAMINOPHEN TAB 650MG DOSE (2X325MG) PO PRN (23:50)
[2023-02-17] MEDS ORDERED: ONDANSETRON 4MG 2ML VIAL IV PRN (23:55)
[2023-02-18] VITALS (7 sets, daily range): BP systolic 101–153; BP diastolic 55–77
[2023-02-18 00:41] LABS: AMORPHOUS SEDIMENT SMALL (NEGATIVE); APPEARANCE, URINE CLOUDY (CLEAR); BACTERIA, URINE AUTO 1+ (NEGATIVE); BILIRUBIN, URINE AUTO NEGATIVE (NEGATIVE); BLOOD, URINE BLOOD 2+ (NEGATIVE); COLOR, URINE YELLOW (YELLOW); GLUCOSE, URINE (UA) AUTO NEGATIVE (NEGATIVE); KETONE, URINE AUTO NEGATIVE (NEGATIVE); LEUKOCYTE ESTERASE, URINE AUTO NEGATIVE (NEGATIVE); MUCUS, URINE SMALL (NEGATIVE); NITRITE, URINE AUTO NEGATIVE (NEGATIVE); PROTEIN, URINE AUTO 1+ mg/dL (NEGATIVE); RBC, URINE AUTO 24 /HPF (0-3); SPECIFIC GRAVITY URINE AUTO 1.009 (1.002-1.035); SQUAMOUS EPITHELIAL CELL UR AU 3 /HPF (0-6); UROBILINOGEN, URINE AUTO 0.2 mg/dL (0.0-2.0); WBC, URINE AUTO 4 /HPF (0-3)
[2023-02-18 00:45] LABS: TOTAL PROTEIN,RANDOM URINE 75.9 MG/DL (0.0-14.0)
[2023-02-18 00:50] LABS: CREATININE,RANDOM URINE 126.3 MG/DL
[2023-02-18] MEDS ORDERED: POTASSIUM CHLORIDE INJ 30 MEQ in LR 1,000 ML IV SCH (01:30)
[2023-02-18] MEDS ORDERED: TRIA1CR80 TOP (01:35)
[2023-02-18] MEDS ORDERED: TORS10TA3 PO (01:35)
[2023-02-18] MEDS ORDERED: ONDA4TAB6 PO (01:35)
[2023-02-18] MEDS ORDERED: APRE1TAB PO (01:35)
[2023-02-18] MEDS ORDERED: FLUO1SOL TOP (01:35)
[2023-02-18] MEDS ORDERED: ENTR1TAB7 PO (01:35)
[2023-02-18] MEDS ORDERED: SPIR-10 PO (01:35)
[2023-02-18] MEDS ORDERED: ALBUTEROL 90 MCG/ACT 8GM HFA INHALER INH PRN (01:40)
[2023-02-18] MEDS ORDERED: HOME MED LIST COMPLETE! XX SCH (01:40)
[2023-02-18 03:14] LABS: CALCIUM LEVEL 7.6 MG/DL (8.3-10.6); CREATININE FOR GFR 2.05 MG/DL (0.55-1.30); POTASSIUM SERUM 2.5 MMOL/L (3.5-5.1)
[2023-02-18] MEDS: cefTRIAXone SOD 2 GM in D5W MINI-BAG PLUS 50 ML IV SCH (03:31)
[2023-02-18] MEDS: POTASSIUM CHLORIDE 10MEQ SR TABLET PO SCH ×3 (03:32→09:56)
[2023-02-18] MEDS: HEPARIN SOD (PORCINE) 5000UNITS/ML 1ML VIAL/SYRINGE SC SCH ×3 (06:13→21:06)
[2023-02-18 06:24] LABS: HEMOGLOBIN 10.4 g/dl (12.0-15.5); MEAN CORPUSCULAR HEMOGLOBIN 31.2 pg (27.0-33.0); MEAN CORPUSCULAR HGB CONC 34.7 g/dl (32.0-36.5); MEAN CORPUSCULAR VOLUME 90.1 fl (80.0-96.0); PLATELET COUNT, AUTOMATED 374 10^3/uL (150-450); RED BLOOD COUNT 3.33 10^6/uL (4.00-5.40); WHITE BLOOD COUNT 11.7 10^3/uL (4.0-10.0)
[2023-02-18 06:59] LABS: ALBUMIN 2.2 G/DL (3.2-5.2); BILIRUBIN,TOTAL 0.3 MG/DL (0.3-1.2); CALCIUM LEVEL 7.9 MG/DL (8.3-10.6); CREATININE FOR GFR 1.64 MG/DL (0.55-1.30); GLOMERULAR FILTRATION RATE 33.7 (>45); POTASSIUM SERUM 2.8 MMOL/L (3.5-5.1); TOTAL PROTEIN 6.1 G/DL (5.7-8.2)
[2023-02-18] MEDS ORDERED: KCL 10MEQ/100ML SWI (KRUN) 10 MEQ in IV 1 EA IV ONE (07:30)
[2023-02-18] MEDS ORDERED: LR 1,000 ML IV SCH (08:00)
[2023-02-18] MEDS ORDERED: LACTOBACILLUS ACIDOPHILUS CAP (BACID) PO SCH (09:00)
[2023-02-18] MEDS: AZITHROMYCIN 250MG TABLET PO SCH (09:57)
[2023-02-18] MEDS: CARVedilol 12.5 MG TAB PO SCH ×2 (09:57→21:06)
[2023-02-18] MEDS: DULoxetine 30MG CAPSULE (CYMBALTA) PO SCH ×2 (09:57→21:06)
[2023-02-18 12:50] LABS: CALCIUM LEVEL 8.2 MG/DL (8.3-10.6); CREATININE FOR GFR 1.28 MG/DL (0.55-1.30); GLOMERULAR FILTRATION RATE 44.8 (>45); POTASSIUM SERUM 3.5 MMOL/L (3.5-5.1)
[2023-02-18] MEDS: LOPERAMIDE 2 MG CAPLET PO PRN ×2 (13:00→13:42)
[2023-02-18] MEDS ORDERED: NS 1,000 ML IV SCH (16:20)
[2023-02-18] MEDS: PANTOPRAZOLE 40MG VIAL IV SCH (17:51)
[2023-02-18] MEDS: LACTOBACILLUS ACIDOPHILUS CAP (BACID) PO SCH (17:52)
[2023-02-18] MEDS ORDERED: POTASSIUM CHLORIDE 10MEQ SR TABLET PO ONE (18:00)
[2023-02-18] MEDS ORDERED: D5W/0.45% SODIUM CHLORIDE 1,000 ML IV SCH (19:05)
[2023-02-18] MEDS: ASPIRIN 81MG ENTERIC TABLET PO SCH (21:05)
[2023-02-19] MEDS: cefTRIAXone SOD 2 GM in D5W MINI-BAG PLUS 50 ML IV SCH (01:39)
[2023-02-19 03:35] VITALS: BP 148/73
[2023-02-19] MEDS: HEPARIN SOD (PORCINE) 5000UNITS/ML 1ML VIAL/SYRINGE SC SCH ×3 (05:10→21:51)
[2023-02-19 05:12] VITALS: BP_SYST 134; BP_SYST 140; BP_SYST 141; BP_DIAS 65; BP_DIAS 66; BP_DIAS 68
[2023-02-19 05:54] LABS: BASO # 0.1 10^3/uL (0.0-0.2); BASO % 0.7 % (0.0-1.0); EOS # 0.2 10^3/uL (0.0-0.5); EOS % 1.4 % (0.0-3.0); HEMATOCRIT 31.3 % (36.0-47.0); HEMOGLOBIN 10.7 g/dl (12.0-15.5); LYMPH # 1.2 10^3/uL (1.5-5.0); LYMPH % 10.3 % (24.0-44.0); MEAN CORPUSCULAR HEMOGLOBIN 31.4 pg (27.0-33.0); MEAN CORPUSCULAR HGB CONC 34.2 g/dl (32.0-36.5); MEAN CORPUSCULAR VOLUME 91.8 fl (80.0-96.0); MONO # 0.8 10^3/uL (0.0-0.8); MONO % 7.4 % (2.0-8.0); NEUTROPHILS # 8.5 10^3/uL (1.5-8.5); NEUTROPHILS % 76.2 % (36.0-66.0); RED BLOOD COUNT 3.41 10^6/uL (4.00-5.40); WHITE BLOOD COUNT 11.1 10^3/uL (4.0-10.0)
[2023-02-19 06:03] LABS: PLATELET COUNT, AUTOMATED 492 10^3/uL (150-450)
[2023-02-19 06:22] LABS: BLOOD UREA NITROGEN 30 MG/DL (9-23); CALCIUM LEVEL 8.2 MG/DL (8.3-10.6); CARBON DIOXIDE LEVEL 20 MMOL/L (20-31); CHLORIDE LEVEL 105 MMOL/L (98-107); GLOMERULAR FILTRATION RATE > 60.0 (>45); GLUCOSE, FASTING 134 MG/DL (74-106); MAGNESIUM LEVEL 1.9 MG/DL (1.8-2.4); POTASSIUM SERUM 3.9 MMOL/L (3.5-5.1); SODIUM LEVEL 138 MMOL/L (136-145)
[2023-02-19 07:43] VITALS: BP 138/64
[2023-02-19] MEDS: CARVedilol 12.5 MG TAB PO SCH ×2 (08:27→20:32)
[2023-02-19] MEDS: AZITHROMYCIN 250MG TABLET PO SCH (08:27)
[2023-02-19] MEDS: DULoxetine 30MG CAPSULE (CYMBALTA) PO SCH ×2 (08:27→20:31)
[2023-02-19] MEDS: PANTOPRAZOLE 40MG VIAL IV SCH (08:28)
[2023-02-19] MEDS: LACTOBACILLUS ACIDOPHILUS CAP (BACID) PO SCH ×2 (08:28→17:17)
[2023-02-19 15:30] VITALS: BP 143/63
[2023-02-19 16:09] LABS: MYCOPLASMA PNEUMONIAE IgG 702 U/mL (0-99); MYCOPLASMA PNEUMONIAE IgM <770 U/mL (0-769)
[2023-02-19 17:30] VITALS: BP 140/69
[2023-02-19] MEDS: ASPIRIN 81MG ENTERIC TABLET PO SCH (20:30)
[2023-02-20] MEDS: cefTRIAXone SOD 2 GM in D5W MINI-BAG PLUS 50 ML IV SCH (02:03)
[2023-02-20] MEDS: HEPARIN SOD (PORCINE) 5000UNITS/ML 1ML VIAL/SYRINGE SC SCH ×2 (05:18→13:52)
[2023-02-20 05:25] VITALS: BP 134/79
[2023-02-20 06:53] LABS: HEMATOCRIT 31.9 % (36.0-47.0); HEMOGLOBIN 10.7 g/dl (12.0-15.5); MEAN CORPUSCULAR HEMOGLOBIN 31.3 pg (27.0-33.0); MEAN CORPUSCULAR HGB CONC 33.5 g/dl (32.0-36.5); MEAN CORPUSCULAR VOLUME 93.3 fl (80.0-96.0); PLATELET COUNT, AUTOMATED 570 10^3/uL (150-450); RED BLOOD COUNT 3.42 10^6/uL (4.00-5.40); WHITE BLOOD COUNT 9.4 10^3/uL (4.0-10.0)
[2023-02-20 07:12] LABS: BLOOD UREA NITROGEN 25 MG/DL (9-23); CALCIUM LEVEL 8.5 MG/DL (8.3-10.6); CARBON DIOXIDE LEVEL 22 MMOL/L (20-31); CHLORIDE LEVEL 105 MMOL/L (98-107); CREATININE FOR GFR 0.72 MG/DL (0.55-1.30); GLOMERULAR FILTRATION RATE > 60.0 (>45); GLUCOSE, FASTING 129 MG/DL (74-106); MAGNESIUM LEVEL 1.5 MG/DL (1.8-2.4); POTASSIUM SERUM 3.8 MMOL/L (3.5-5.1); SODIUM LEVEL 138 MMOL/L (136-145)
[2023-02-20 07:48] LABS: ANISOCYTOSIS 1+; ATYPICAL LYMPH 3 % (0-5); BASOPHILS 1 % (0-1); EOSINOPHILS 3 % (0-3); LYMPHOCYTES 20 % (16-44); MONOCYTES 4 % (0-5); NEUTROPHILS 69 % (28-66); PLATELET ESTIMATE INCREASED (NORMAL); POIKILOCYTOSIS 1+; POLYCHROMASIA 1+
[2023-02-20] MEDS: LACTOBACILLUS ACIDOPHILUS CAP (BACID) PO SCH (08:09)
[2023-02-20] MEDS: MAG SULF 1GM/100ML (MAG RUN) 1 GM in IV 1 EA IV SCH ×4 (08:10→13:00)
[2023-02-20] MEDS: DULoxetine 30MG CAPSULE (CYMBALTA) PO SCH (08:10)
[2023-02-20] MEDS: AZITHROMYCIN 250MG TABLET PO SCH (08:10)
[2023-02-20 08:13] VITALS: BP 118/72
[2023-02-20] MEDS: PANTOPRAZOLE 40MG VIAL IV SCH (08:13)
[2023-02-20] MEDS: CARVedilol 12.5 MG TAB PO SCH (08:13)
[2023-02-20 11:10] LABS: CK-MB VALUE MASS 1.1 NG/ML (<3.6); MB/CK RELATIVE INDEX 3.14 (< OR =4)
[2023-02-20 14:00] VITALS: BP 135/74
[2023-02-20] MEDS ORDERED: CEFP200T PO (15:04)
[2023-02-20] MEDS ORDERED: DOXY100C3 PO (15:04)
[2023-02-20] MEDS ORDERED: RISATAB3 PO (15:04)
[2023-02-20] MEDS ORDERED: MAGN400T2 PO (15:08)
[2023-02-21 14:08] LABS: BODY FLUID CULTURE Not indicated. (.); LEGIONELLA ANTIGEN URINE Positive (Negative); ORGANISM ID Not indicated. (.); SPECIMEN SOURCE Urine (.); URINE STREP PNEUMONIAE ANTIGEN Negative (Negative)
[2023-02-25 17:08] LABS: CHLAMYDIA PNEUMONIAE IgG <1:100 (< 1:100); CHLAMYDIA PNEUMONIAE IgM <1:10 (< 1:10); CHLAMYDIA PSITTACI IgG <1:100 (< 1:100); CHLAMYDIA PSITTACI IgM <1:10 (< 1:10); CHLAMYDIA TRACHOMATIS IgM <1:10 (< 1:10)
== END 2023-02-20 16:00 | disposition home or self-care (01) | DRG 391 ==
LOC: M ED 19:38 → EDBD 19:38 → M ED INP 23:48 → M PCU 02-18 00:40 → M MS5PR 02-19 17:21
PROVIDERS: ADMIT Internal Medicine; ATTEND Internal Medicine
DX: A08.4 Viral intestinal infection, unspecified (principal); J18.9 Pneumonia, unspecified organism; N17.9 Acute kidney failure, unspecified; E87.1 Hypo-osmolality and hyponatremia; I50.9 Heart failure, unspecified; I11.0 Hypertensive heart disease with heart failure; D64.9 Anemia, unspecified; E78.5 Hyperlipidemia, unspecified; I25.10 Atherosclerotic heart disease of native coronary artery without angina pectoris; N20.0 Calculus of kidney; M10.9 Gout, unspecified; E87.6 Hypokalemia; R55 Syncope and collapse; M79.7 Fibromyalgia; E83.42 Hypomagnesemia; E86.0 Dehydration; G47.33 Obstructive sleep apnea (adult) (pediatric); Z95.2 Presence of prosthetic heart valve; L40.8 Other psoriasis; Z88.5 Allergy status to narcotic agent; Z79.899 Other long term (current) drug therapy; Z79.82 Long term (current) use of aspirin; F41.9 Anxiety disorder, unspecified; F32.A Depression, unspecified

== ENCOUNTER → 2023-03-18 | Outpatient (CLI) | payer MEDICARE ==
[~2023-03-18] MED LIST changes: +APRE1TAB PO; +CEFP200T PO; +CIDA500T2 PO; +COQ150CH PO; +DOXY100C3 PO; +ENTR1TAB7 PO; +FLUO1SOL TOP; +MAGN400C2 PO; +MAGN400T2 PO; +RISATAB3 PO; +SPIR-10 PO; +TORS10TA3 PO; +TRIA1CR80 TOP
== END ==
LOC: M WUC 15:21
PROVIDERS: ATTEND Internal Medicine Gastroenterology
DX: R19.7 Diarrhea, unspecified (principal); Z53.9 Procedure and treatment not carried out, unspecified reason

== ENCOUNTER → 2023-03-18 | Outpatient (REF) | payer MEDICARE ==
[2023-03-18 19:20] LABS: BASO # 0.1 10^3/uL (0.0-0.2); BASO % 1.1 % (0.0-1.0); EOS # 0.1 10^3/uL (0.0-0.5); EOS % 1.2 % (0.0-3.0); HEMATOCRIT 40.9 % (36.0-47.0); LYMPH # 1.7 10^3/uL (1.5-5.0); LYMPH % 25.8 % (24.0-44.0); MEAN CORPUSCULAR HEMOGLOBIN 31.2 pg (27.0-33.0); MEAN CORPUSCULAR HGB CONC 31.8 g/dl (32.0-36.5); MEAN CORPUSCULAR VOLUME 98.1 fl (80.0-96.0); MONO # 0.7 10^3/uL (0.0-0.8); NEUTROPHILS % 61.4 % (36.0-66.0); PLATELET COUNT, AUTOMATED 306 10^3/uL (150-450); RED BLOOD COUNT 4.17 10^6/uL (4.00-5.40); WHITE BLOOD COUNT 6.5 10^3/uL (4.0-10.0)
[2023-03-18 19:33] LABS: ALBUMIN 3.9 G/DL (3.2-5.2); ALKALINE PHOSPHATASE 116 U/L (46-116); ALT/SGPT 18 U/L (7.0-40); AST/SGOT 22 U/L (<34); BILIRUBIN,DIRECT < 0.1 MG/DL (<0.4); BILIRUBIN,TOTAL 0.3 MG/DL (0.3-1.2); BLOOD UREA NITROGEN 20 MG/DL (9-23); CALCIUM LEVEL 9.2 MG/DL (8.3-10.6); CARBON DIOXIDE LEVEL 23 MMOL/L (20-31); CHLORIDE LEVEL 106 MMOL/L (98-107); CREATININE FOR GFR 0.77 MG/DL (0.55-1.30); GLOMERULAR FILTRATION RATE > 60.0 (>45); GLUCOSE, FASTING 84 MG/DL (74-106); INR 0.91; PARTIAL THROMBOPLASTIN TIME 27.5 SECONDS (24.8-34.2); PROTHROMBIN TIME 12.4 SECONDS (12.5-14.5); SODIUM LEVEL 136 MMOL/L (136-145); TOTAL PROTEIN 7.7 G/DL (5.7-8.2)
== END ==
LOC: M LAB REF 18:50
PROVIDERS: ATTEND Internal Medicine Gastroenterology
DX: R19.7 Diarrhea, unspecified (principal); I20.0 Unstable angina; I21.19 ST elevation (STEMI) myocardial infarction involving other coronary artery of inferior wall; I10 Essential (primary) hypertension

== ENCOUNTER → 2023-03-20 | Day surgery (SDC) | payer MEDICARE ==
[~2023-03-20] VITALS: Ht 170.2 cm; Wt 81.2 kg
[~2023-03-20] MED LIST changes: +LIDOCAINE 2% MDV 20ML VIAL As Ordered ONE; +NS 1,000 ML IV ONE; +fentaNYL 100 MCG/2 ML INJECTION As Ordered ONE; +propofoL 500 MG/50 ML VIAL As Ordered ONE
[2023-03-20 13:26] VITALS: TEMP 97.2
[2023-03-20 13:48] VITALS: BP 150/69; O2SAT 98
== END | disposition home or self-care (01) ==
LOC: M OPP 10:28
PROVIDERS: ATTEND Internal Medicine Gastroenterology
DX: Z12.11 Encounter for screening for malignant neoplasm of colon (principal); D12.6 Benign neoplasm of colon, unspecified; D12.8 Benign neoplasm of rectum; K63.5 Polyp of colon; K64.4 Residual hemorrhoidal skin tags; K64.8 Other hemorrhoids; K22.89 Other specified disease of esophagus; K29.70 Gastritis, unspecified, without bleeding; F17.200 Nicotine dependence, unspecified, uncomplicated; Z79.02 Long term (current) use of antithrombotics/antiplatelets; Z79.51 Long term (current) use of inhaled steroids; Z79.82 Long term (current) use of aspirin; Z79.899 Other long term (current) drug therapy; Z88.5 Allergy status to narcotic agent; Z88.8 Allergy status to other drugs, medicaments and biological substances; Z91.018 Allergy to other foods
CPT/HCPCS: 43239; 45385; 88305; J3010

== ENCOUNTER → 2024-02-06 | Outpatient (REF) | payer MEDICARE, OTHER ==
[~2024-02-06] MED LIST changes: -ASPI-161 PO; +ASPI-615 PO; -GABA-283 PO; +GABA-284 PO; -LIDOCAINE 2% MDV 20ML VIAL As Ordered ONE; -NS 1,000 ML IV ONE; -fentaNYL 100 MCG/2 ML INJECTION As Ordered ONE; -propofoL 500 MG/50 ML VIAL As Ordered ONE
== END ==
LOC: M LAB REF 18:19
PROVIDERS: ATTEND Physician Assistant
DX: R31.9 Hematuria, unspecified (principal)

== ENCOUNTER → 2024-03-19 | Outpatient (CLI) | payer OTHER ==
[~2024-03-19] MED LIST changes: +BYST1TAB2 PO; -BYST5TAB2 PO; +ONDA-282 PO; -ONDA4TAB6 PO
== END ==
LOC: M WUC 14:42
PROVIDERS: ATTEND Internal Medicine
DX: M54.32 Sciatica, left side (principal); M85.88 Other specified disorders of bone density and structure, other site; M51.36 Other intervertebral disc degeneration, lumbar region

== ENCOUNTER → 2024-04-19 | Outpatient (REF) | payer OTHER ==
[2024-04-19 19:19] LABS: FOLATE 12.3 NG/ML (>5.4)
== END ==
LOC: M LAB REF 16:33
PROVIDERS: ATTEND Internal Medicine
DX: D64.9 Anemia, unspecified (principal)

== ENCOUNTER → 2024-04-30 | Outpatient (CLI) | payer OTHER ==
[~2024-04-30] MED LIST changes: +GASTROGRAFIN SOLUTION 30ML As Ordered ONE; +ISOVUE-370 76% 100ML VIAL As Ordered ONE
== END ==
LOC: M RAD 07:01
PROVIDERS: ATTEND Internal Medicine
DX: R19.00 Intra-abdominal and pelvic swelling, mass and lump, unspecified site (principal)
CPT/HCPCS: 74177; Q9963; Q9967

== ENCOUNTER → 2024-06-03 | Outpatient (CLI) | payer OTHER ==
[~2024-06-03] MED LIST changes: +GABA-1490 PO; -GABA600T4 PO; -GASTROGRAFIN SOLUTION 30ML As Ordered ONE; -ISOVUE-370 76% 100ML VIAL As Ordered ONE
[2024-06-03 14:24] LABS: HEMATOCRIT 41.2 % (36.0-47.0); HEMOGLOBIN 13.9 g/dl (12.0-15.5); MEAN CORPUSCULAR HEMOGLOBIN 35.1 pg (27.0-33.0); MEAN CORPUSCULAR HGB CONC 33.7 g/dl (32.0-36.5); PLATELET COUNT, AUTOMATED 281 10^3/uL (150-450); RED BLOOD COUNT 3.96 10^6/uL (4.00-5.40); WHITE BLOOD COUNT 10.3 10^3/uL (4.0-10.0)
== END ==
LOC: M WUC 09:40
PROVIDERS: ATTEND Nurse Practitioner Family
DX: M79.675 Pain in left toe(s) (principal)

== ENCOUNTER → 2024-06-21 | Outpatient (REF) | payer OTHER | LOC: M LAB REF 16:34 | PROVIDERS: ATTEND Internal Medicine | DX: M10.9 Gout, unspecified (principal) ==

== ENCOUNTER → 2024-09-09 | Outpatient (CLI) | payer OTHER ==
[2024-09-10 10:43] LABS: ALBUMIN 3.5 G/DL (3.2-5.2); ALKALINE PHOSPHATASE 91 U/L (35-104); ALT/SGPT 22 U/L (7.0-40); AST/SGOT 27 U/L (<34); BILIRUBIN,TOTAL 0.3 MG/DL (0.3-1.2); BLOOD UREA NITROGEN 18 MG/DL (9-23); CALCIUM LEVEL 9.4 MG/DL (8.3-10.6); CARBON DIOXIDE LEVEL 29 MMOL/L (20-31); CHLORIDE LEVEL 107 MMOL/L (98-107); CREATININE FOR GFR 0.81 MG/DL (0.55-1.30); GLOMERULAR FILTRATION RATE > 60.0 (>45); GLUCOSE, FASTING 117 MG/DL (74-106); POTASSIUM SERUM 4.4 MMOL/L (3.5-5.1); SODIUM LEVEL 141 MMOL/L (136-145)
== END ==
LOC: M WUC 14:50
PROVIDERS: ATTEND Registered Nurse
DX: I50.42 Chronic combined systolic (congestive) and diastolic (congestive) heart failure (principal)

== ENCOUNTER → 2025-08-08 | Outpatient (CLI) | payer MEDICARE ==
[~2025-08-08] MED LIST changes: +BUPR-670 PO; -BUPR1TAB52 PO; -COLC0.6T47 PO; +COLC0.6T53 PO
== END ==
LOC: M CARPUL 09:19
PROVIDERS: ATTEND Registered Nurse
DX: I77.810 Thoracic aortic ectasia (principal); I50.42 Chronic combined systolic (congestive) and diastolic (congestive) heart failure; I36.1 Nonrheumatic tricuspid (valve) insufficiency

== ENCOUNTER → 2025-08-15 | Outpatient (CLI) | payer MEDICARE ==
[2025-08-15 13:35] LABS: PLATELET COUNT, AUTOMATED 309 10^3/uL (150-450)
[2025-08-15 13:47] LABS: INR 0.93
[2025-08-15 13:57] LABS: ALT/SGPT 14.0 U/L (7.0-40); AST/SGOT 26.0 U/L (<34); CALCIUM LEVEL 9.0 MG/DL (8.3-10.6); CARBON DIOXIDE LEVEL 26.0 MMOL/L (20-31); CHLORIDE LEVEL 108.0 MMOL/L (98-107); CREATININE FOR GFR 0.75 MG/DL (0.55-1.30); GLOMERULAR FILTRATION RATE 87.8 (>45); POTASSIUM SERUM 3.9 MMOL/L (3.5-5.1); SODIUM LEVEL 142.0 MMOL/L (136-145)
== END ==
LOC: M LAB 11:44
PROVIDERS: ATTEND Orthopaedic Surgery
DX: Z01.812 Encounter for preprocedural laboratory examination (principal); M17.11 Unilateral primary osteoarthritis, right knee; Z79.01 Long term (current) use of anticoagulants

== ENCOUNTER → 2025-08-17 | Outpatient (REF) | payer MEDICARE ==
[2025-08-17 15:39] LABS: IRON (FE) 73.0 UG/DL (50-170)
[2025-08-17 15:40] LABS: PERCENT SATURATION 22.2 % (13.2-45.0)
== END ==
LOC: M LAB REF 14:39
PROVIDERS: ATTEND Internal Medicine
DX: D64.9 Anemia, unspecified (principal)